=== PATIENT | female | born 2005 | race Caucasian/White ===

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

== ENCOUNTER 2023-10-18 03:48 | Emergency (ER) | payer OTHER, SELFPAY ==
[2023-10-18 03:53] VITALS: BMI 18.9
[2023-10-18] MEDS: OLANZapine 10 MG VIAL IM (04:05)
[2023-10-18] MEDS: LORazepam 2 MG/ML VIAL IM (04:05)
--- NOTE | 2023-10-18 04:18 | ED_ITS ---
HPI - Psych General Chief Complaint: Psychiatric Symptoms Stated Complaint: ETOH USE,SI, UNCOOP PER EMS Time Seen by Provider: 10/18/23 04:01 Source: patient Mode of arrival: EMS Limitations: no limitations History of Present Illness ED Provider: chloé JASSO Narrative: Patient with history of alcohol abuse prescribed by PD from her house for making SI statements to her parents under ETOH influenza agitated noncompliant on arrival Related Data Home Medications ?Medication ?Instructions ?Recorded ?Confirmed fluoxetine 10 mg capsule 1 cap PO DAILY 09/23/21 10/18/23 Allergies Allergy/AdvReac Type Severity Reaction Status Date / Time amoxicillin Allergy Intermediate Rash Verified 10/18/23 03:55 Review of Systems Review of Systems: Yes all other systems are reviewed and are negative Physical Exam Vital Signs: Vital Signs: Last Vital Signs Resp 16 10/18/23 04:50 BMI result Body Mass Index 18.9 Appearance: Alert. Agitated etoh ++ Eyes: PERRLA, No Nystagmus ENT: Pharynx normal. Oral Mucosa moist Neck: Normal inspection. Neck supple. CVS: Normal heart rate and rhythm. Pulses normal. Respiratory: No respiratory distress. Equal air entry bilateral, no wheezing/rales/rhonchi Abdomen: Soft and nontender. Bowel sounds are present, no mass palpable, no CVA tenderness Skin: Skin warm and dry. Normal skin color. Normal skin turgor. Extremities: No lower extremity edema. No calf tenderness psych: Agitated ETOH++ non cooperative Neuro: And toxic moving all 4 extremities Medications Administered Discontinued Medications Generic Name Dose Route Start Last Admin Trade Name Freq PRN Reason Stop Dose Admin Lorazepam 2 mg 10/18/23 04:01 10/18/23 04:05 Lorazepam 2 Mg/Ml Vial IM 10/18/23 04:02 2 mg STAT STA Administration Olanzapine 10 mg 10/18/23 04:01 10/18/23 04:05 Olanzapine 10 Mg Vial IM 10/18/23 04:02 10 mg STAT STA Administration Medical Decision Making Medical Decision Making [facility] Narrative: Patient placed on restrained as was agitated and noncooperative received olanzapine and Ativan Will get care team evaluation after gets sober Discharge Plan Discharge Clinical Impression: Alcohol intoxication Patient Disposition: Still a Patient Prescriptions: No Action fluoxetine 10 mg capsule 1 cap PO DAILY Print Language: Citizen [place]
[2023-10-18 04:50] VITALS: RESP 16; RESP 18
--- NOTE | 2023-10-18 04:56 | PC.NURSE ---
Patient is extremely uncooperative, yelling and screaming, threatening, combative, difficult to redirect, refused to foreign exchange services manager, provider notified/ordered physical restraint and medication restraint, olanzapine 10 mg IM and Ativan 2 mg IM administered as ordered at 0405, physical restrained initiated at same time, patient continued yelling and screaming, calmed down at 0450 four point restraint discontinued, patient is currently in bed appears sleeping, respiration +/=/non labored bilaterally, labs and foreign exchange services manager pending, will continue to monitor
[2023-10-18 06:41] VITALS: RESP 16
--- NOTE | 2023-10-18 07:12 | PC.NURSE ---
Assumed care of patient at 0645. No signs of distress observed, breathing is even and unlabored. Patient is observed resting quietly in bed.
[2023-10-18 09:56] LABS: Basophils Percent Auto 0.3 % (0-2); Eosinophils Absolute Auto 0.2 X10*3/uL (0.0-0.4); Eosinophils Percent Auto 2.3 % (0-4); Hematocrit 47.4 % (37.0-47.0); Hemoglobin 16.5 g/dl (12.0-16.0); Imm Gran Abs Auto 0.02 X10*3/uL (0.00-0.03); Imm Gran Pct Auto 0.3 % (0.0-0.4); Lymphocytes Absolute Auto 3.2 X10*3/uL (1.2-4.9); Lymphocytes Percent Auto 49.5 % (20-40); MANUAL DIFF FLAG SCAN; Mean Corpuscular HGB Conc 34.8 g/dl (31.0-35.0); Mean Corpuscular Hemoglobin 30.8 pg (27.0-33.0); Mean Corpuscular Volume 88.6 fL (80.0-98.0); Monocytes Absolute Auto 0.5 X10*3/uL (0.1-1.2); Monocytes Percent Auto 8.2 % (2-11); Neutrophils Absolute Auto 2.5 x10*3/uL (2.0-8.3); Neutrophils Percent Auto 39.4 % (45-73); PLT CLUMP 1; Red Blood Count 5.35 X10*6/uL (4.20-5.50); Red Cell Distribution Width 12.3 % (11.0-16.0); SCAN SMEAR FLAG 1
[2023-10-18 10:26] LABS: Mean Platelet Volume 10.3 fL (9.4-12.3); Platelet Count 233 X10*3/uL (160-400); SLIDE REVIEW VERIFIED; White Blood Count 6.4 X10*3/uL (4.8-10.8)
[2023-10-18 10:35] LABS: Alanine Aminotransferase 23 U/L (0-31); Albumin Level 4.8 g/dL (3.5-5.0); Alkaline Phosphatase 24 U/L (39-117); Anion Gap 17 (12-20); Aspartate Amino Transferase 35 U/L (5-31); Bilirubin Total 0.7 mg/dL (0.0-1.0); Blood Urea Nitrogen 7 mg/dL (9-16); Calcium 9.5 mg/dL (8.4-10.2); Carbon Dioxide 20 mmol/L (22-29); Chloride 112 mmol/L (96-108); Estimated Glomerular Filt Rate > 60; Ethanol 61 mg/dL; Glucose Random 86 mg/dL (60-115); Potassium 4.3 mmol/L (3.3-5.1); Sodium 145 mmol/L (135-145); Total Protein 8.3 g/dL (6.5-8.0)
[2023-10-18 10:37] VITALS: BP 111/70; PULSE 85; RESP 14; TEMP 36; O2SAT 99
[2023-10-18 10:38] VITALS: BP 111/70; PULSE 85; RESP 18; TEMP 36; O2SAT 99
--- NOTE | 2023-10-18 11:33 | MHC.CARE ---
CARE team completed assessment. Cleared for discharge, referred for [facility] follow up with [facility].
== END 2023-10-18 10:51 | disposition home or self-care (01) ==
LOC: HO.ED 10:44
PROVIDERS: Internal Medicine; Emergency Provider Emergency Medicine Emergency Medical Services
DX: F10.120 Alcohol abuse with intoxication, uncomplicated (principal); Y90.3 Blood alcohol level of 60-79 mg/100 ml; R45.1 Restlessness and agitation; R45.851 Suicidal ideations; Z91.198 Patient's noncompliance with other medical treatment and regimen for other reason; Z79.899 Other long term (current) drug therapy
CPT/HCPCS: 36415; 80053; 80307; 85025; 96372; 99284; 99285; J2060; J2359; S9485